=== PATIENT | male | born 1950 | race Caucasian/White ===

== ENCOUNTER → 2017-08-09 | Outpatient (CLI) | payer MEDICARE, OTHER ==
[~2017-08-09] VITALS: Ht 172.7 cm; Wt 88.0 kg
[~2017-08-09] MED LIST: ASPIR 8181 MG PO; ATORVASTATIN CA40 MG PO; FLEXERIL PO; LIPITOR20 MG PO; MOBIC15 MG PO; NAPROSYN500 MG PO; NORCO 5-325 TA1 EACH PO; NORVASC 5 MG TAB5 MG PO; NORVASC10 MG PO; PERCOCET PO; SIMBRINZA 1%-0.28 ML OPHTHALMIC; XARELTO10 M1 PO; XARELTO10 MG PO
[2017-08-09 08:53] LABS: HEMATOCRIT 47.5 % (42.0-52.0); HEMOGLOBIN 15.8 gm/dL (14.0-18.0); MCH 29.6 pg (26.0-34.0); MCHC 33.4 g/dL (28.0-37.0); MCV 88.6 fL (80.0-100.0); MPV 7.1 fl. (7.2-11.1); RBC 5.36 mil/uL (4.50-6.00); RDW-CV 15.1 % (10.5-14.5); WBC 6.1 thou/uL (4.0-11.0)
[2017-08-09 09:04] LABS: URINE BILIRUBIN NEGATIVE (Negative); URINE BLOOD NEGATIVE (Negative); URINE CLARITY CLEAR; URINE COLOR YELLOW; URINE GLUCOSE-RANDOM NEGATIVE (Negative); URINE KETONES NEGATIVE (Negative); URINE LEUKOCYTES-REFLEX NEGATIVE (Negative); URINE NITRITE-REFLEX NEGATIVE (Negative); URINE PROTEIN NEGATIVE (Negative); URINE UROBILINOGEN 0.2 E.U./dl (0.2-1.0)
[2017-08-09 09:10] LABS: INR 1.1; PROTIME 10.7 Seconds (9.20-11.50)
[2017-08-09 09:14] LABS: ALBUMIN 4.1 g/dL (3.4-5.0); CREATININE 0.9 mg/dL (0.6-1.3); POTASSIUM 4.3 mmol/L (3.5-5.1); TOTAL BILIRUBIN 0.8 mg/dL (<0.1-1.0); TOTAL PROTEIN 7.1 g/dL (6.4-8.2)
== END ==
LOC: M.LAB 08:00 → EDSTATUS 08-17 08:12 → M.PRE 08-17 08:45
PROVIDERS: Orthopaedic Surgery
DX: M17.11 Unilateral primary osteoarthritis, right knee (principal)

== ENCOUNTER 2017-08-31 07:11 | Inpatient (IN) | payer MEDICARE, OTHER ==
[~2017-08-31] VITALS: Ht 172.7 cm; Wt 88.0 kg
[~2017-08-31 07:11] MED LIST changes: -PERCOCET PO; -XARELTO10 MG PO
[2017-08-31 08:00] VITALS: BP 142/85
[2017-08-31 16:25] VITALS: BP 123/67
[2017-09-01] VITALS (8 sets, daily range): BP systolic 112–169; BP diastolic 64–85
[2017-09-01 04:55] LABS: HEMATOCRIT 37.3 % (42.0-52.0); HEMOGLOBIN 12.4 gm/dL (14.0-18.0)
[2017-09-02 04:34] VITALS: BP 140/72
[2017-09-02 04:43] LABS: HEMATOCRIT 33.4 % (42.0-52.0); HEMOGLOBIN 11.2 gm/dL (14.0-18.0)
[2017-09-02 08:15] VITALS: BP 177/99
[2017-09-02] MEDS ORDERED: PERCOCET PO (11:23)
[2017-09-02] MEDS ORDERED: XARELTO10 MG PO (11:23)
[2017-09-02 11:26] VITALS: BP 112/85
[2017-09-02 11:40] VITALS: BP 112/85
[2017-09-02 12:00] VITALS: BP 136/74
[2017-09-02 12:47] VITALS: BP 112/85
--- NOTE | 2017-09-03 10:05 | S ---
[address] [address] SURGICAL PATH RPT PROCEDURE Name: FRANCESCO ALVAREZ Room: [address] IN [facility].#: [id number] Admission: 08/31/17 Date of : 48 Discharge: 09/02/17 Report #: [id number] Path Case #: [id number] PATHOLOGY REPORT COLLECTION DATE: 08/31/2017 RECEIVED DATE: 08/31/2017 SUBMITTING PHYS: Dr. Javi Irby II OTHER PHYS: Dr. Nura Espinoza SPECIMEN(S) RECEIVED: A.Bone left knee * * * * * * * * * * * * FINAL DIAGNOSIS: Bone, left knee, total knee replacement: - Mild, non-specific chronic synovitis, benign meniscus and benign bone and cartilage with severe degenerative changes. (JORGE:db; 09/02/2017) PATHOLOGIST: Matty Ellington M.D. REPORT ELECTRONICALLY SIGNED BY: Matty Ellington M.D. DATE/TIME: 09/03/2017 10:04 * * * * * * * * * * * * GROSS PATHOLOGY: Received in formalin labeled "Francesco Alvarez, bone left knee," are multiple segments of bone, including tibial plateau, measuring 14.2 x 11.7 x 2.6 cm in aggregate dimensions admixed with soft tissue; meniscus is present. The specimen shows focal eburnation of the articular surfaces. Operational Review Sergeant sections of bone and soft tissue are submitted in cassette A1, following decalcification. (DAC; 09/01/2017) CLINICAL HISTORY: Left knee degenerative joint disease INITIAL CPT CODE(S): A; 44679, 58522 Professional services performed by [facility] at [facility], [address] [place] [address] [address], [place] [address]. Technical services performed by [facility] at [address] [place] [address], [facility] [address] [place] [address]. [facility] [place] [id number] SURGICAL PATH RPT PROCEDURE Name: FRANCESCO ALVAREZ Room: [address]#: [id number] Admission: 08/31/17 Date of : 48 Discharge: 09/02/17 Report #: [id number] Path Case #: [id number] [address] PHONE: [phone] DIRECTOR: Long Ledezma M.D. * * * END OF REPORT * * *
--- NOTE | 2017-09-14 08:37 | OP ---
[address] [address] OPERATIVE REPORT Name: BRYAN ALVAREZ Room: [address] IN .R.#: [id number] Admission: 08/31/17 Attend Phys: Kurt Bar Discharge: 09/02/17 Date of : 48 Report #: [id number] THIS REPORT FOR: //name// CC: NO PCP Javi Espinoza DATE OF SERVICE: 08/31/2017 PREOPERATIVE DIAGNOSIS: Left knee osteoarthritis. POSTOPERATIVE DIAGNOSIS: Left knee osteoarthritis. PROCEDURE: Left total knee arthroplasty with Navio. ANESTHESIA: General endotracheal. ESTIMATED BLOOD LOSS: 50 mL. SURGEON: Javi Irby II, DO [place] LEAD: DA Kelly ANTIBIOTICS: Ancef preoperatively. DRAINS: Medium Hemovac. COMPLICATIONS: None. DISPOSITION: Stable to recovery room. IMPLANTS: Listed in the operative record and progress note. BRIEF HISTORY: The patient was seen in the preoperative area. Preoperative H and P was performed and updated. The patient's site was marked. Questions were answered. Risks and benefits were discussed with the patient in detail about surgery. The patient wished to proceed and assumed all risks. OPERATIVE PROCEDURE: The patient was taken to the operative suite, placed supine on the operative table, appropriate anesthesia. A well-padded tourniquet was applied to the upper thigh, which was inflated to 300 mmHg after gravity exsanguination. The operative knee was then sterilely prepped and draped. Surgery began by midline incision. This was carried down to subcutaneous tissues. Medial parapatellar arthrotomy was performed and carried down to the bone. The patella was then everted and excess soft tissue removed from around the femur as well as osteophytes. The tracking [place] [address] OPERATIVE REPORT Name: BRYAN ALVAREZ Room: [address]#: [id number] Admission: 08/31/17 Attend Phys: Kurt Bar Discharge: 09/02/17 Date of : 48 Report #: [id number] femur and tibia and the registration was performed for the robotic Navio cutting device. After appropriate alignment had been performed and confirmed, the robot was activated and appropriate pin holes were placed on the femur and tibia. Attention was then turned to the femur. The alignment guide was then malleted in position, checked with the robotic assistance and appropriate cut was made in the distal femur. The 4-in-1 cutting block was then drilled in appropriate fashion, applied and appropriate cuts were made. The attention was then turned to the tibia. The tibial cutting block was then aligned, checked with robotic assistance and appropriate cut was made. Excess bone and soft tissue removed from around the tibia. The tibial base plate was then applied, checked with a drop marguax for rotational alignment and slope, pinned into appropriate position. Femur was then applied and reamed in appropriate fashion. The trial was then performed, which showed excellent fit and fill, excellent stability of the knee through all range of motion. The patella was then reamed in appropriate fashion and sized for appropriate size. Three peg holes were drilled. It was then trialed, which shown to have excellent flexion, extension and excellent tracking of the patella within the groove. These trials were removed. The tibia was punched in appropriate fashion. Bone ends were cleansed with Pulsavac irrigation and the cement was mixed and applied to the final implants. These were then malleted in position, held the knee in extension and compressed to allow cement to cure. After it cured, excess was removed utilizing a Aurora and osteotome. The wound was then copiously irrigated and the final spacer was then malleted into position. The tourniquet was deflated and hemostasis was maintained with electrocautery. A pain cocktail was injected. PRP gel was sprayed throughout the internal aspects of the knee. Medium Hemovac drain was then applied and the capsule was closed with #2 FiberWire and #1 Vicryl in a [id number] fashion. The tracking pins were then removed and closed with nylon. Skin was then closed with a 2-0 Vicryl and running 3-0 Monocryl. Dermabond and sterile dressings were then applied. Juan wrap and PolarCare were applied. The patient was transported to the recovery room in stable fashion. Counts were correct throughout the procedure. <ELECTRONICALLY SIGNED> By: Javi Iryb II, DO 09/14/17 [id number] Irby II, DO /nt
== END 2017-09-02 12:45 | disposition home health service (06) | DRG 470 ==
LOC: M.ORTHSURG 07:11 → M.TBA 07:11 → M.ORTHSURG 11:41 → M.SUR 13:14 → EDSTATUS 13:15 → M.ORTHSURG 13:19
PROVIDERS: Orthopaedic Surgery; ADMIT Internal Medicine
PROC: 0SRD0J9 Replacement of Left Knee Joint with Synthetic Substitute, Cemented, Open Approach (ICD-10-PCS; principal; 2017-08-31)
DX: M17.12 Unilateral primary osteoarthritis, left knee (principal); F17.210 Nicotine dependence, cigarettes, uncomplicated; I10 Essential (primary) hypertension; Z96.651 Presence of right artificial knee joint; Z98.52 Vasectomy status; Z79.899 Other long term (current) drug therapy; Z88.2 Allergy status to sulfonamides; Z79.82 Long term (current) use of aspirin